=== PATIENT | female | born 1960 | race Caucasian/White ===

== ENCOUNTER 2016-09-02 17:43 | Emergency (ER) | payer OTHER ==
[2015-07-28 07:40] VITALS: BMI 43.3
[~2016-09-02 17:43] MED LIST: CARAFATE1 G PO; PLAVIX75 MG PO; PRAVACHOL20 MG PO; PRILOSEC20 MG PO; ZESTORETIC 20/21 TAB PO
== END 2016-09-02 19:00 | disposition left against medical advice (07) ==
LOC: D.ER 17:43
DX: T78.40XA Allergy, unspecified, initial encounter (principal); X58.XXXA Exposure to other specified factors, initial encounter

== ENCOUNTER → 2016-09-28 07:18 | Outpatient (CLI) | payer OTHER ==
[~2016-09-28] VITALS: Ht 167.6 cm; Wt 122.7 kg
--- NOTE | ~2016-09-28 | OP ---
PATIENT NAME: TOLU ROJAS MEDICAL RECORD: [id number] :62 LOCATION:D.CAT ADMISSION DATE: SURGEON: MYRON HEATON MD DATE OF OPERATION: 09/28/2016 PROCEDURES: 1. PTCA stent LAD. 2. Intravascular ultrasound of the LAD. 3. Left heart catheterization. 4. Selective coronary angiography. 5. Left ventriculogram. INDICATION: Angina and coronary artery disease. PROCEDURE IN DETAIL: After informed consent was obtained and after detailed explanation of risks, benefits as well as alternative therapies, the patient elected to proceed with angiogram and angioplasty. The right femoral area was prepped and draped in normal sterile fashion. The right femoral artery was cannulated via modified Seldinger technique with placement of 6-Italian sheath. All catheters exchanged through this sheath. FINDINGS: The left ventriculogram was performed in standard 30-degree MACHADO view, reveals good cardiac wall motion throughout all segments. Overall ejection fraction is 60%. SELECTIVE CORONARY ANGIOGRAPHY: 1. Left main showed no significant angiographic disease. 2. Left circumflex has moderate irregularities, but no flow-limiting stenosis. 3. The left anterior descending has previously placed stent. This is widely patent. However, proximal to this in the proximal vessel there is a 70% stenosis confirmed by intravascular ultrasound. 4. Right coronary is chronically totally occluded, unchanged from previous angiography, distal right coronary fills via left to right collaterals. PERCUTANEOUS TRANSLUMINAL CORONARY ANGIOPLASTY OF THE LEFT ANTERIOR DESCENDING: The lesion was a 15 mm lesion and a 3.5 vessel FABIO 3 flow before and after the intervention. The intervention was undertaken with a 3.5 x 18 mm BioFreedom stent taken to 15 atmospheres. Result was 0% residual stenosis. OVERALL IMPRESSION: Successful percutaneous transluminal coronary angioplasty stent of the LAD going from 70% initial stenosis confirmed by intravascular ultrasound to 0% residual stenosis. TRANSINT:[id number] Voice Confirmation ID: [id number] DOCUMENT ID: [id number] MYRON HEATON MD CC: [id number] DICTATION DATE: 09/28/16 1145 DESIGN ENGINEER: 09/28/162119 DEP CLI 09/28/16 [place] [address]
--- NOTE | ~2016-09-28 | HEMODYNAMI ---
PATIENT:TOLU ROJAS MEDICAL RECORD: [id number] : 62 LOCATION:DAlejandroCAT ADMISSION DATE: 09/28/16 Generatedon:09/28/201611:48 Patient name: TOLU ROJAS Patient #: [id number] SSN: : 1960 Date of study: 09/28/2016 Page: Of Hemodynamic Procedure Report Patient Data Patient Demographics Procedure consent was obtained First Name: TOLU Gender: Female Last Name: BOB : 1960 Middle Initial: NASREEN Age: 55 year(s) Patient #: [id number] Race: Unknown Additional ID: [id number] Contact details Address: [address] [place] [address] State: [place] City: [place] Zip code: [address] Past Medical History Allergies Allergen Reaction Date Comments Reported Other allergy 09/28/2016 Hydralazine, Sotolol, ASA, Codeine Admission Admission Data Admission Date: 09/28/2016 Admission Time: 7:18 Admit Source: Other Height (in.): 66 BSA: 2.27 (m2) Height (cm.): 167.64 BMI: 43.58 (kg/m2) Weight (lbs.): 270 Weight (kg.): 122.47 Lab Results Lab Result Date: 09/28/2016 Lab Result Time: 7:50 Biochemistry Name Units Result Min Max BUN mg/dl 11 --(-*--)-- 7 18 CK-MB ng/ml 1.2 --(-*--)-- 0 3.6 Creatinine mg/dl 0.9 --(-*--)-- 0.6 1.3 Creatinine l 153 --(--*-)-- 21 215 Kinase Troponin l ng/ml 0.017 --(-*--)-- 0 0.06 CBC Name Units Result Min Max Hematocrit % 34.7 *-(----)-- 42 54 Hemoglobin g/dl 10.9 *-(----)-- 13.5 17.5 Procedure Procedure Types Cath Procedure Diagnostic Procedure [facility] w/Coronaries FFR/IVUS Intra-Coronary IVUS Initial PCI Procedure Coronary Stent Initial Miscellaneous Procedures Moderate Sedation up to 30 minutes Procedure Description Procedure Date Procedure Date: 09/28/2016 Procedure Start Time: 11:10 Procedure End Time: 11:46 Procedure Staff Name Function Moses Leigh MD Performing Physician Fercho Bateman RT Scrub Celina Kaplan RN Nurse Too Leon RN Business Development Officer Poitr Deleon RT Monitor Procedure Data Cath Procedure Fluoroscopy Diagnostic fluoroscopy Total fluoroscopy Time: 4.9 time: 4.9 min min Diagnostic fluoroscopy Total fluoroscopy dose: dose: 1046 mGy 1046 mGy Contrast Material Contrast Material Type Amount (ml) Isovue 300 108 Entry Location Entry Primary Successful Side Size Upsize Upsize Entry Closure Succes sful Closure Location (Fr) 1 (Fr) 2 (Fr) Remarks Device Remarks Femoral Right 5 Fr 6 Fr Exoseal artery Short Estimated blood loss: 10 ml Diagnostic catheters Device Type Used For End Catheter Placement Cordis 5Fr Pigtail Procedure Catheter (MP) Cordis 5Fr JL 4.0 Procedure Catheter (MP) Cordis 5Fr 3DRC Catheter Procedure (MP) Procedure Complications No complications Procedure Medications Medication Administration Route Dosage Oxygen NC 2 l/min Lidocaine 2% added to field 20 Heparin Flush Bag added to field 2 bags (1000units/500ml NS) 0.9% NaCl I.V. 100 ml/hr Versed I.V. 2 mg Fentanyl I.V. 100 mcg Versed I.V. 1 mg Fentanyl I.V. 50 mcg Versed I.V. 1 mg Fentanyl I.V. 50 mcg Versed I.V. 1 mg Fentanyl I.V. 50 mcg Heparin Bolus I.V. 4000 units Integrilin (Bolus I.V. 11.3 ml 2mg/ml) Fentanyl I.V. 50 mcg Versed I.V. 1 mg Plavix P.O. 600 mg Hemodynamics Rest BSA: 2.27 (m2) HGB: 10.9 (g/dl) O2 Consumption: Estimated: 226.49 (ml/min) O2 Co nsumption indexed: Estimated:99.78 (ml/min/m) Heart Rate: 78 (bpm) Pressure Samples Time Site Value (mmHg) Purpose Heart Use Rate(bpm) 11:18 LV 53/19,51 Snapshot 77 Snapshots Pre Cath Intra NCS Post Cath Vital Signs Time Heart Resp SPO2 etCO2 [id number] NIBP Rhythm Pain Sedation Rate (ipm) (%) (mmHg) (mmHg) (mmHg) Status Level (bpm) 11:02:11 81 16 100 0 0 118/64(81) NSR 0 (11) 10(A) , No pain 11:06:33 88 25 97 0 0 122/64(83) NSR 0 (11) 10(A) , No pain 11:10:55 79 17 98 0 0 105/55(76) NSR 0 (11) 10(A) , No pain 11:15:13 77 18 97 0 0 95/59(73) NSR 0 (11) 10(A) , No pain 11:19:25 73 20 98 0 0 102/60(86) NSR 0 (11) 10(A) , No pain 11:23:41 83 16 96 0 0 114/61(77) NSR 0 (11) 10(A) , No pain 11:27:59 83 19 94 0 0 109/66(94) NSR 0 (11) 10(A) , No pain 11:32:13 81 17 95 0 0 104/67(83) NSR 0 (11) 10(A) , No pain 11:36:29 92 16 97 0 0 109/59(87) NSR 0 (11) 10(A) , No pain 11:40:45 85 22 99 0 0 99/58(75) NSR 0 (11) 10(A) , No pain 11:44:57 96 0 0 111/68(89) NSR 0 (11) 10(A) , No pain Medications Time Medication Route Dose Verified Delivered Reason Notes Effectiveness by by 11:00:30 Oxygen NC 2 Moses Patrick used for l/min Reese Kaplan RN procedure 11:00:36 Lidocaine 2% added 20ml Moses Lopes for local to vial Reese Leigh MD anesthetic field 11:00:42 Heparin Flush added 2 Moses Lopes used for Bag to bags Reese Leigh MD procedure (1000units/500ml field NS) 11:00:52 0.9% NaCl I.V. 100 Mosesmary Patrick Per physician ml/hr Reese Kaplan RN 11:09:11 Versed I.V. 2 mg Moses Buffie for sedation Reese Kaplan RN 11:09:17 Fentanyl I.V. 100 Moses Buffie for sedation mcg Reese Kaplan RN 11:12:29 Versed I.V. 1 mg Moses Buffie for sedation Reese Kaplan RN 11:12:33 Fentanyl I.V. 50 Moses Buffie for sedation mcg Reese Kaplan RN 11:17:36 Versed I.V. 1 mg Moses Buffie for sedation Reese Kaplan RN 11:17:40 Fentanyl I.V. 50 Moses Buffie for sedation mcg Reese Kaplan RN 11:24:38 Versed I.V. 1 mg Moses Buffie for sedation Reese Kaplan RN 11:24:42 Fentanyl I.V. 50 Moses Buffie for sedation mcg Reese Kaplan RN 11:30:51 Heparin Bolus I.V. 4000 Moses Mujicaie for verifi ed units Reese Kaplan RN anticoagulation with dr leigh 11:32:35 Integrilin I.V. 11.3 Moses Patrick for Wasted (Bolus 2mg/ml) ml Reese Kaplan RN antiplatelet 8.7 ml therapy of vial 11:35:09 Versed I.V. 1 mg Moses Mujicaie for sedation Reese Kaplan RN 11:35:56 Fentanyl I.V. 50 Moses Buffie for sedation mcg Reese Kaplan RN 11:39:07 Plavix P.O. 600 Moses Patrick for mg Reese Kaplan RN antiplatelet therapy Procedure Log Time Note 10:45:11 Informed consent obtained and on chart 10:45:15 Admit Source: Other 10:45:34 Diagnostic Cath status Elective 10:45:36 Too Leon RN sent for patient. Start room use. 10:45:37 Time tracking: Regular hours 10:45:40 Plan of Care:Hemodynamics will remain stable., Cardiac rhythm will remain stable., Comfort level will be maintained., Respiratory function will remain adequate., Patient/ family verbilizes understanding of procedure., Procedure tolerated without complication., Recovers from procedure without complications.. 10:45:56 H&P Date Dictated: 09/21/2016 Within 30 days and on chart., H&P Addendum completed by physician on day of procedure. (MUST COMPLETE FOR ALL OUTPATIENTS). 10:47:52 Patient received from Pre/Post Procedure Room to CCL 1 Alert and oriented. Tansferred to table in Supine position. 10:47:53 Warm blankets applied, and latanya hugger turned on for patient comfort. 10:47:54 Correct patient and procedure confirmed by team. 10:47:54 ECG and BP/O2 sat monitors applied to patient. 11:00:30 Oxygen 2 l/min NC was administered by Celina Kaplan RN; used for procedure; 11:00:36 Lidocaine 2% 20ml vial added to field was administered by Moses Leigh MD; for local anesthetic; 11:00:42 Heparin Flush Bag (1000units/500ml NS) 2 bags added to field was administered by Moses Leigh MD; used for procedure; 11:00:52 0.9% NaCl 100 ml/hr I.V. was administered by Celina Kaplan RN; Per physician; 11:00:56 Vital chart was started 11:01:48 Baseline sample Acquired. 11::52 Rhythm: sinus rhythm 11::54 Full Disclosure recording started 11:01:57 Pre-procedure instructions explained to patient. 11:01:57 Pre-op teaching completed and patient verbalized understanding. 11:01:59 Family in waiting room. 11:02:00 Patient NPO since Midnight. 11:02:27 Patient allergic to Other allergyHydralazine, Sotolol, ASA, Codeine 11:02:29 Is the patient allergic to Iodine/contrast media? No. 11:02:30 Is patient on blood thinner?Yes 11:02:37 Patient diabetic? No. 11:02:48 Previous problem with sedation/anesthesia? No ? 11:02:49 Snore? Yes 11:02:50 Sleep apnea? No 11:02:51 Deviated septum? No 11:02:53 Opens mouth fully? Yes 11:02:54 Sticks out tongue? Yes 11:02:58 Airway obstruction? No ? 11:03:00 Dentures? No ? 11:03:02 Modified Isidoro's test Ulnar < 7 seconds 11:03:04 Patient pain scale 0/10 ?. 11:03:15 IV patent on arrival in left hand with 0.9% NaCl at [facility]. 11:03:44 Lab Result : BUN 11 mg/dl 11:03:44 Lab Result : Hemoglobin 10.9 g/dl 11::44 Lab Result : Creatinine 0.9 mg/dl 11::44 Lab Result : Hematocrit 34.7 % 11:03:47 Lab results completed and on chart. 11:03:49 Right Radial & Right Groin area was prepped with chlora-prep and draped in sterile fashion 11:03:50 Alarms reviewed by R. N. 11:03:50 Sharps counted by scrub and verified by R.N. 11:03:54 Use device set Radial Dx 11:03:55 MBrace Wrist Support opened to sterile field. 11:03:56 Tegaderm 4 x 4 opened to sterile field. 11:03:57 Acist Syringe opened to sterile field. 11:03:58 Acist Manifold opened to sterile field. 11:03:58 Acist Hand Control opened to sterile field. 11:03:59 Medline Cath Pack opened to sterile field. 11:03:59 Bag Decanter opened to sterile field. 11:04:00 Terumo 6Fr Slender Glidesheath opened to sterile field. 11:04:00 St Angel 260cm J .035 wire opened to sterile field. 11:05:08 Patient Height : 66 cm 11:05:10 Patient Weight : 270 kg 11:05:39 Lab Result : Troponin l 0.017 ng/ml 11:05:39 Lab Result : Creatinine Kinase 153 l 11:05:39 Lab Result : CK-MB 1.2 ng/ml 11:05:42 Physician paged 11:08:18 Physician arrived 11:08:18 --------ALL STOP TIME OUT------ 11:08:18 Final Timeout: patient, procedure, and site verified with staff and physician. All members of the team are in agreement. 11:08:20 Right Radial & Right Groin site verified by team. 11:08:23 Physical assessment completed. ASA score P 2 - A patient with mild systemic disease as per Moses Leigh MD. 11:08:26 Sedation plan: IV Moderate Sedation Versed, Fentanyl 11:09:11 Versed 2 mg I.V. was administered by Celina Kaplan RN; for sedation; 11:09:12 Zero performed for pressure channel P1 11::17 Fentanyl 100 mcg I.V. was administered by Buffie Kaplan RN; for sedation; 11:10:39 Procedure started. 11:10:51 Local anesthetic to right radial artery with Lidocaine 2% by Moses Leigh MD.INITIAL ACCESS ONLY 11:12:08 Terumo 5Fr Grannis Sheath opened to sterile field. 11:12:14 Local anesthetic to right femoral artery with Lidocaine 2% by Moses Leigh MD.ADDITIONAL ACCESS 11:12:29 Versed 1 mg I.V. was administered by Celina Kaplan RN; for sedation; 11:12:33 Fentanyl 50 mcg I.V. was administered by Cleina Kaplan RN; for sedation; 11:15:21 Use device set Multipack Set 11:15:23 Diagnostic Infinity 5Fr Multipack catheter opened to sterile field. 11:16:01 A 5 Fr sheath was inserted into the Right Femoral artery 11:16:06 A Cordis 5Fr Pigtail Catheter (MP) was advanced over the wire and used for Procedure. 11:17:36 Versed 1 mg I.V. was administered by Celina Kaplan RN; for sedation; 11:17:40 Fentanyl 50 mcg I.V. was administered by Celina Kaplan RN; for sedation; 11:18:20 LV gram done using MACHADO 11:18:22 Injector settings: Ml/sec: 10., Volume: 20, 11:18:27 EF : 55 % 11:18:34 Catheter exchanged over wire. 11:18:38 A Cordis 5Fr JL 4.0 Catheter (MP) was advanced over the wire and used for Procedure. 11:19:21 LCA angiography performed. 11:20:16 Catheter exchanged over wire. 11:20:22 A Cordis 5Fr 3DRC Catheter (MP) was advanced over the wire and used for Procedure. 11:20:37 RCA angiography performed. 11:20:58 Catheter removed. 11:22:28 Cordis 6FR XBLAD 3.5 guide catheter opened to sterile field. 11:22:29 Mcdaniels Whisper J 300cm 0.014 guide wire opened to sterile field. 11:22:30 [place] IVUS Catheter opened to sterile field. 11:22:30 Terumo 6Fr Grannis Sheath opened to sterile field. 11:22:39 Sheath upsized to a 6 Fr Short. 11:22:49 6 Fr xblad 3.5 guide catheter was inserted over the wire 11::31 Guide Catheter removed. unable to cannulate vessel. 11:24:36 Cordis 6FR XBLAD 4.0 guide catheter opened to sterile field. 11::38 Versed 1 mg I.V. was administered by Celina Kaplan RN; for sedation; 11::42 Fentanyl 50 mcg I.V. was administered by Celina Kaplan RN; for sedation; 11:25:24 whisper wire advanced. 11::43 Wire advanced across lesion. 11::53 IVUS catheter advanced over wire. 11:30:51 Heparin Bolus 4000 units I.V. was administered by Celina Kaplan RN; for anticoagulation; verified with dr leigh 11:31:40 IVUS pass to LAD lesion performed. 11::41 IVUS catheter removed over wire. 11::47 Wire removed. 11::51 whisper wire advanced. 11::53 Wire advanced across lesion. 11:32:35 Integrilin (Bolus 2mg/ml) 11.3 ml I.V. was administered by Celina Kaplan RN; for antiplatelet therapy; Wasted 8.7 ml of vial 11:33:25 Inflation Number: 1 A Biofreedom 3.5 x 18 stent (No Cost Implant) was prepped and advanced across the Prox LAD. The stent was deployed at 13 KAYCEE for 0:10 (min:sec). 11:34:00 Stent catheter was removed intact over wire. 11:34:01 Wire removed. 11:34:02 Guide catheter removed. 11:34:07 Cordis 6Fr Exoseal opened to sterile field. 11:35:09 Versed 1 mg I.V. was administered by Celina Kaplan RN; for sedation; 11:35:56 Fentanyl 50 mcg I.V. was administered by Celina Kaplan RN; for sedation; 11:36:02 Sheath removed intact; hemostasis achieved with Exoseal to the Right Femoral artery. 11:36:04 Procedure ended.(Physican Out) :38:08 Fluoroscopy time 04.90 minutes. 11:38:11 Flurop Dose total: 1046 11:38:11 Fluoroscopy dose: 1046 mGy 11:38:18 Contrast amount:Isovue 300 108ml. 11:38:19 Sharps counted by scrub and verified by R.N. 11:38:22 Insertion/operative site no bleeding no hematoma. 11:38:25 Post-op/insertion site Right Femoral artery dressed using a 4 x 4 and Tegaderm. 11:38:28 Post-op/insertion site Right Radial artery dressed using a Bandaid. 11:38:33 Post right femoral artery:stable, soft, clean and dry 11:38:43 Post right radial artery:stable, soft, clean and dry 11:38:46 Post Procedure Pulses reassessed and unchanged 11:38:48 Post-procedure physical assessment completed. ASA score P 2 - A patient with mild systemic disease as per Moses Leigh MD. 11:38:51 Post procedure rhythm: unchanged. 11:38:55 Estimated blood loss: 10 ml 11:38:56 Post procedure instruction explained to patient.Patient verbalizes understanding. 11:38:57 Patient needs reinforcement of post procedure teaching. 11:39:07 Plavix 600 mg P.O. was administered by Celina Kaplan RN; for antiplatelet therapy; 11:40:50 Procedure type changed to Cath procedure, Diagnostic procedure, LHC, LHC w/Coronaries, FFR/IVUS, Intra-Coronary IVUS Initial, PCI procedure, Coronary Stent Initial, Miscellaneous Procedures, Moderate Sedation up to 30 minutes 11:46:27 Merit BasixCompak Inflation Kit opened to sterile field. 11:46:33 Procedure and supply charges have been captured, reviewed, submitted and are correct. 11:46:34 Procedure Complication : No complications 11:46:48 Vital chart was stopped 11:46:48 See physician's report for complete and final results. 11:46:51 Report given to Pre/Post Procedure Room. 11:46:53 Patient transfered to Pre/Post Procedure Room with Stretcher. 11:46:56 Procedure ended. 11:46:56 Full Disclosure recording stopped 11:47:00 End room use (Document Last) Intervention Summary Intervention Notes Time ActionType Lesion and Equipment Action# Pressure Duration Attributes Used 11:33:25 Place stent Prox LAD Biofreedom 1 13 00:10 3.5 x 18 stent (No Cost Implant) Device Usage Item Name Manufacture Quantity Catalog Hospital Part Current Minimal Lot# / Number Charge Number Stock Stock Serial# Code [facility] 1 140-0250-00 617446 55695 355969 5 Wrist Vascular Support Dynamics Tegaderm 4 3M 1 1626W 519377 246717 994957 5 x 4 Acist Acist 1 30479 780633 956658 575401 20 Syringe Medical Systems Inc Acist Acist 1 61053 641345 237150 513784 5 Manifold Medical Systems Inc Acist Hand Acist 1 79410 631487 332940 923383 5 Control Medical Systems Inc Medline Cardinal 1 [id number] 185293 25418 195175 5 Cath Pack Health Bag Microtek 1 2002S 735793 70369 877449 5 Decanter Medical Inc. Terumo 6Fr Terumo 1 [id number] 091629 600912 502951 [address] [facility] St Angel 1 574152 118389 272538 023743 30 260cm J .035 wire Terumo 5Fr Terumo 1 [id number] 904143 111243 493488 40 Grannis Sheath Diagnostic Cardinal 1 [id number] 909206 89611 164447 30 Infinity Health 5Fr Multipack catheter Cordis 5Fr Cardinal 1 533496 5 Pigtail Health Catheter (MP) Cordis 5Fr Cardinal 1 732741 5 JL 4.0 Health Catheter (MP) Cordis 5Fr Cardinal 1 312773 5 3DRC Health Catheter (MP) Cordis 6FR Cardinal 1 [id number] 227543 297694 036064 10 XBLAD 3.5 Health guide catheter Mcdaniels Mcdaniels 1 [id number] 395692 613376 979785 5 Whisper J Vascular 300cm 0.014 guide wire [place] 1 [id number] 219575 450427 200922 8 [place] IVUS Catheter Terumo 6Fr Terumo 1 [id number] 159914 035354 755733 40 Grannis Sheath Cordis 6FR Cardinal 1 [id number] 291585 453461 921873 3 XBLAD 4.0 Health guide catheter Biofreedom Biosensors 1 [facility]2-6184 020263 714551 5 [id number] 3.5 x 18 [place] SA stent (No Cost Implant) Cordis 6Fr Cardinal 1 EX600 535153 439000 636582 10 [facility] Bluwan Merit Merit 1 [id number] 682905 849086 402441 15 LilaKutu Medical Inflation Kit Signature Audit [place] Stage Time Signature Unsigned Intra-Procedure 09/28/2016 Piotr Deleon 11:48:48 AM RT(R) Signatures Monitor : Piotr Deleon RT Signature : Date : Time : [address] [place] [address]
[~2016-09-28 07:18] MED LIST changes: +CELEXA10 MG PO; +FUROSEMIDE20 MG PO; +LINZESS290 MCG PO; +NEURONTIN 300300 MG PO; +OMEPRAZOLE40 MG PO; -PRILOSEC20 MG PO; +ROBAXIN500 MG PO; +RYTHMOL SR225 MG PO; +XARELTO15 MG PO
[2016-09-28 07:51] VITALS: BP 113/54; Ht 167.6 cm; Wt 122.7 kg
[2016-09-28 08:07] LABS: BASOPHILS 0.2 % (0-2); EOSINOPHILS 0.4 % (0-7); HEMATOCRIT 34.7 % (36.0-48.0); HEMOGLOBIN 10.9 g/dL (12-16); IMMATURE GRANULOCYTES 0.2 % (0-5); LYMPHOCYTES 32.4 % (15-50); MCH 23.8 pg (26.0-34.0); MCHC 31.4 g/dL (31.0-37.0); MCV 75.8 fL (80.0-100.0); MEAN PLATELET VOLUME 10.1 fL (7.4-10.4); MONOCYTES 6.3 % (2-11); NEUTROPHILS 60.5 % (40-80); PLATELET COUNT 286 10x3/uL (130-400); RBC 4.58 10x6/uL (4.00-5.40); RDW 16.2 % (11.5-14.5); WBC 5.1 10x3/uL (4.8-10.8)
[2016-09-28 08:28] LABS: CALC OSMOLALITY 277 mosm/kg (275-300); CALCIUM 8.6 mg/dL (8.5-10.1); CHLORIDE - SERUM 102 mmol/L (98-107); CKMB 1.2 U/L (0.0-3.6); CREATINE KINASE 153 UL (21-215); CREATININE - SERUM 0.9 mg/dL (0.6-1.3); GLUCOSE 125 mg/dL (74-106); SODIUM 139 mmol/L (136-145); UREA NITROGEN 11 mg/dL (7-18); eGFR NON AFRICAN AMERICAN 69 mL/min (90-120)
[2016-09-28 08:29] LABS: TROPONIN-I < 0.017 ng/mL (0.000-0.060)
[2016-09-28 08:30] LABS: POTASSIUM - SERUM 2.7 mmol/L (3.5-5.1)
--- NOTE | 2016-09-28 12:15 | NUR ---
RESTING, RIGHT GROIN CDI, NO HEMATOMA OR BLEEDING AT SITE
--- NOTE | 2016-09-28 12:25 | NUR ---
C/O NAUSEA- ZOFRAN 4MG GIVEN IV. COOL CLOTH TO HEAD, AT SIDE.
--- NOTE | 2016-09-28 12:45 | NUR ---
NAUSEA BETTER AT THIS TIME, RIGHT GROIN CDI, NO HEMATOMA OR BLEEDING AT SITE
--- NOTE | 2016-09-28 15:30 | NUR ---
EKG COMPLETE- NSR, LAB HERE FOR DRAW, SANDWICH SERVED, AT SIDE
--- NOTE | 2016-09-28 16:00 | NUR ---
UP TO REST ROOM- VOID, IV D'C WITH CATH TIP INTACT, WRITTEN AND VERBAL INSTRUCTIONS GIVEN TO PT AND . VERBAL UNDERSTANDING NOTED.
--- NOTE | 2016-09-28 16:30 | NUR ---
LAB RESULTS COMPLETE, D'C HOME WITH . DENIES CHEST PAIN
== END | disposition home or self-care (01) ==
LOC: D.CATH 07:18
PROVIDERS: Internal Medicine Interventional Cardiology
DX: I25.119 Atherosclerotic heart disease of native coronary artery with unspecified angina pectoris (principal); Z00.6 Encounter for examination for normal comparison and control in clinical research program; Z01.812 Encounter for preprocedural laboratory examination

== ENCOUNTER 2016-12-11 09:43 | Inpatient (IN) | payer OTHER ==
--- NOTE | 2016-12-11 10:10 | NUR ---
RECIEVED TO ROOM 2225 FROM [facility]. IV SITED TO L WRIST WITH 22 GUAGE X 1 ATTEMPT. RIGHT INDEX FINGER RED AND SWOLLEN WITH DARKNESS NOTED TO TIP OF FINGER. COMPLAINING OF THROBBING PAIN. FAMILY AT BEDSIDE.
[2016-12-11 10:14] VITALS: BP 128/64; BMI 42.0
[2016-12-11 10:36] LABS: BASOPHILS 0.1 % (0-2); EOSINOPHILS 0.4 % (0-7); HEMATOCRIT 34.1 % (36.0-48.0); HEMOGLOBIN 10.8 g/dL (12-16); IMMATURE GRANULOCYTES 0.3 % (0-5); LYMPHOCYTES 27.1 % (15-50); MCH 23.9 pg (26.0-34.0); MCHC 31.7 g/dL (31.0-37.0); MCV 75.4 fL (80.0-100.0); MEAN PLATELET VOLUME 9.8 fL (7.4-10.4); MONOCYTES 5.3 % (2-11); NEUTROPHILS 66.8 % (40-80); PLATELET COUNT 307 10x3/uL (130-400); RBC 4.52 10x6/uL (4.00-5.40); RDW 16.4 % (11.5-14.5); WBC 7.4 10x3/uL (4.8-10.8)
[2016-12-11 10:37] VITALS: BP 128/64
--- NOTE | 2016-12-11 10:44 | NUR ---
DEMEROL AND PHENERGAN GIVEN IM TO L HIP.
[2016-12-11 11:01] LABS: ALBUMIN 3.5 g/dL (3.4-5.0); ANION GAP 16.3 mmol/L (8-16); BILIRUBIN - TOTAL 0.41 mg/dL (0.2-1.3); CALCIUM 9.1 mg/dL (8.5-10.1); CARBON DIOXIDE 24.9 mmol/L (21.0-32.0); CREATININE - SERUM 1.1 mg/dL (0.6-1.3); POTASSIUM - SERUM 3.2 mmol/L (3.5-5.1); PROTEIN - SERUM 7.2 g/dL (6.4-8.2)
--- NOTE | 2016-12-11 13:15 | NUR ---
OFF FLOOR TO OR VIA BED.
--- NOTE | 2016-12-11 13:57 | NUR ---
RETURNED TO ROOM FROM OR VIA BED. DRESSING TO R HAND C/D/I. FAMILY AT BEDSIDE. DENIES ANY NEEDS AT THIS TIME.
[2016-12-11 16:18] VITALS: BP 92/47
[2016-12-11 20:40] VITALS: BP 109/61
--- NOTE | 2016-12-12 01:15 | NUR ---
RN NOTE: PT RESTING QUIETLY IN SUPINE POSITION WITH RIGHT HAND ELEVATED. DRESSING ON RIGHT HAND CLEAN AND DRY. IV IN LEFT WRIST PATENT WITH NS INFUSING AT 50 ML / HR. WILL CONTINUE TO MONITOR FOR NEEDS. CALL LIGHT WITHIN REACH.
[2016-12-12 01:22] VITALS: BP 96/51
[2016-12-12 04:08] VITALS: BP 89/48
[2016-12-12 04:56] LABS: HEMATOCRIT 31.2 % (36.0-48.0); HEMOGLOBIN 9.8 g/dL (12-16)
[2016-12-12 05:21] LABS: ANION GAP 12.3 mmol/L (8-16); CALCIUM 8.5 mg/dL (8.5-10.1); CARBON DIOXIDE 25.7 mmol/L (21.0-32.0); CREATININE - SERUM 1.1 mg/dL (0.6-1.3)
--- NOTE | 2016-12-12 07:30 | NUR ---
ASSESSMENT COMPLETE. IV TO L WRIST PATENT. NS INFUSING AT 50 CC/HR VIA PUMP. DRESSING TO R HAND C/D/I. FAMILY AT BEDSIDE. DENIES ANY NEEDS AT THIS TIME.
--- NOTE | 2016-12-12 08:23 | OP ---
PATIENT NAME: TOLU ROJAS MEDICAL RECORD: [id number] :62 LOCATION:D.[id number] ADMISSION DATE:12/11/16 SURGEON: YOLANDA FRANCO DO DATE OF OPERATION: 12/11/2016 PROCEDURE PERFORMED: Right index finger incision and debridement. PREOPERATIVE DIAGNOSIS: Right index finger felon. POSTOPERATIVE DIAGNOSIS: Right index finger felon. INDICATIONS: Ms. Munoz is a 56-year-old right hand dominant female that started to get a finger infection in her right index finger approximately a week ago. She was seen by primary care and started on Bactrim. The finger continued to get more red and painful and swollen. She was then seen yesterday and given what was found to be a gram of Ancef in the office through IM. Was checked on again today and did not get better, and she was directly admitted before I was asked to see her as a consult. I saw her and some of the finger needed to be I&D'd. Informed her of the risks and benefits and asked when she ate last, she informed me that she had just had a biscuit and therefore I told her that we would forego any anesthesia, and that I would do a digital block on her. She was okay with that and proceeded forward with the procedure. SURGEON: Yolanda Franco DO DESCRIPTION OF PROCEDURE: The patient was given a block in the preoperative area with a mixture of 0.25% Marcaine, with a mixture of 1% lidocaine with epinephrine in it. There were 6 mL total put in the right index finger at the base of the digit. After it was cleaned with Betadine and alcohol, 4 mL of the Marcaine and 2 mL of lidocaine with epinephrine. Once this was done, the block was set up. The patient was taken back to the operating room. She was in the supine position on the bed. She was prepped and draped with Betadine and then sterile towels were placed around the finger isolating it. A time-out was performed. Everyone was in agreement that this was the correct side, site and patient. She was already on antibiotics, those were continued. Once this was all confirmed with the timeout, the hand was supinated and a midline incision on the volar aspect of the index finger was made. Soon as an incision was made, hemostat was made to spread the incision and purulence came out of the wound. This was cultured for aerobic and anaerobic cultures and Gram stain and was sent to the lab. After the cultures were taken, continue to do debridement of all the necrotic tissue and most of the purulence was expressed from the digit as well as all the loculations were broken up. The skin that had around that site, the distal tip of the index finger was removed as well, and then the wound was irrigated thoroughly. Once this is done, Adaptic, 4 x 4s, Kerlix and Coban was used to wrap the finger down around the wrist as well securing into place. The plan will be to keep her overnight on IV antibiotics and recheck the finger in the morning to ensure it is improving. Blood loss on this case was minimal. TRANSINT:[id number] Voice Confirmation ID: [id number] DOCUMENT ID: [id number] OPERATIVE REPORT [id number] TOLU ROJAS MICHAEL D, DO at 0823 CC: [id number] DICTATION DATE: 12/11/16 1414 MANAGER OF CORPORATE: 12/11/16 1456 ADM IN [facility] [address] [place] [address]
[2016-12-12 08:25] VITALS: BP 115/59
--- NOTE | 2016-12-12 10:00 | NUR ---
PLACED IN TEMPORARY ISOLATION FOR STAPH.
[2016-12-12 12:25] VITALS: BP 102/49
--- NOTE | 2016-12-12 14:25 | NUR ---
ULTRAM GIVEN FOR COMPLAINT OF RIGHT HAND PAIN.
[2016-12-12 16:36] VITALS: BP 105/65
--- NOTE | 2016-12-12 17:39 | NUR ---
SITTING UP IN CHAIR. DENIES ANY NEEDS AT PRESENT.
[2016-12-12 19:30] VITALS: BP 91/42
[2016-12-13 04:00] VITALS: BP 86/36
--- NOTE | 2016-12-13 05:22 | NUR ---
RN NOTE: PT RESTIN QUIETLY IN SUPINE POSITION WITH UNLABORED BREATHING. IV IN LEFT WRIST SALINE LOCKED. DREAAING ON RIGHT HAND CLEAN AND DRY. SIDE RAILS UP X2 FOR SAFETY.
[2016-12-13 06:01] LABS: HEMATOCRIT 33.2 % (36.0-48.0); HEMOGLOBIN 10.3 g/dL (12-16)
--- NOTE | 2016-12-13 07:46 | NUR ---
PT REQUESTING PAIN MEDICATION AT THIS TIME. PRN OXY ADMINISTERED PER ORDER FOR PAIN. REMAINS IN CONTACT ISOLATION. DR FRANCO IN ROOM PERFORMING DRESSING CHANGE AT THIS TIME. CALL LIGHT IN REACH, WILL CONTINUE WITH PLAN OF CARE.
[2016-12-13 08:31] VITALS: BP 104/61
--- NOTE | 2016-12-13 09:14 | NUR ---
SCHEDULED MEDICATIONS ADMINISTERED AT THIS TIME WITHOUT DIFFICULTY. PAIN 2/10 ON RE-ASSESSMENT. REMAINS IN CONTACT ISOLATION. AT BEDSIDE AND IV PATENT WITH NO S/S OF INFILTRATION PRESENT. CALL LIGHT IN REACH, WILL CONTINUE WITH PLAN OF CARE.
[2016-12-13 09:20] LABS: BASOPHILS 0.2 % (0-2); EOSINOPHILS 1.1 % (0-7); IMMATURE GRANULOCYTES 0.2 % (0-5); LYMPHOCYTES 39.3 % (15-50); MCH 23.4 pg (26.0-34.0); MEAN PLATELET VOLUME 10.7 fL (7.4-10.4); MONOCYTES 10.4 % (2-11); NEUTROPHILS 48.8 % (40-80); PLATELET COUNT 283 10x3/uL (130-400); RBC 4.23 10x6/uL (4.00-5.40); RDW 17.1 % (11.5-14.5)
[2016-12-13 09:26] LABS: WBC 5.4 10x3/uL (4.8-10.8)
[2016-12-13 09:32] LABS: ALBUMIN 2.9 g/dL (3.4-5.0); ANION GAP 13.7 mmol/L (8-16); BILIRUBIN - TOTAL 0.26 mg/dL (0.2-1.3); CALCIUM 8.5 mg/dL (8.5-10.1); CARBON DIOXIDE 24.6 mmol/L (21.0-32.0); POTASSIUM - SERUM 4.3 mmol/L (3.5-5.1); PROTEIN - SERUM 6.1 g/dL (6.4-8.2)
--- NOTE | 2016-12-13 11:28 | NUR ---
Patient Name: TOLU ROJAS Admission Status: Elective Accout number: [id number] Admission Date: 12-11-2016 : 1960 Admission Diagnosis: Attending: PRINCE DOUGLAS Current LOS: 2 Anticipated DC Date: 12-15-2016 Planned Disposition: Home Primary Insurance: [facility] PPO Discharge Planning Comments: CM MET WITH PATIENT REGARDING D/C NEEDS AND PLANS. PATIENT STATED SHE LIVES WITH HER SPOUSE (ALEXEI) AND HE WILL DRIVE HER HOME AT DISCHARGE. PATIENT STATES SHE HAS NO STEPS TO ENTER HOME AND HAS 1 FLIGHT INSIDE WITH RAILS. PATIENT IS INDEPENDENT WITH HER CARE AND HAS NO DME AT HOME. PATIENTS PCP IS DR. RIOS AND PHARMACY IS [facility] AT [facility]. CM WILL CONTINUE TO FOLLOW PATIENT WITH D/C NEEDS AND PLANS. PCP DR. BLANCA HUERTAS AT [facility]- [phone] ALEXEI (SPOUSE) [phone] Metal Treater: Toshia Guan Is the patient Alert and Oriented? Yes 0 * How many steps to enter\exit or inside your home? 1 flight 0 * PCP DR. RIOS 0 * Pharmacy [facility] AT [facility] 0 * Preadmission Environment Home with Family 0 * ADLs Independent 0 * Equipment None 0 * List name and contact numbers for known caregivers / representatives who currently or will assist patient after discharge: ALEXEI (SPOUSE) [phone] * Community resources currently utilized None 0 * Additional services required to return to the preadmission environment? Yes 0 * Can the patient safely return to the preadmission environment? Yes 0 * Has this patient been hospitalized within the prior 30 days at any hospital? No 0 Grand Total: 0
[2016-12-13] MEDS ORDERED: VIBRAMYCIN 100100 MG PO (11:54)
[2016-12-13 12:04] VITALS: BP 102/56
--- NOTE | 2016-12-13 12:50 | NUR ---
DISCHARGE PAPERWORK REVIEWED AT THIS TIME WITH PT AND SPOUSE. DENIES QUESTIONS OR CONCERNS. IV TO LEFT WRIST D/C WITH CATH TIP INTACT. CALL LIGHT IN REACH, WILL D/C HOME AFTER FINISHING LUNCH.
--- NOTE | 2016-12-13 13:13 | NUR ---
CM REASSESSMENT NOTE: PATIENT IS DISCHARGING HOME TODAY. SPOUSE IS DRIVING HER AND PATIENT REFUSED HOME HEALTH AND HAD NO OTHER NEEDS FOR DISCHARGE.
--- NOTE | 2017-01-03 11:14 | DS ---
PATIENT:TOLU ROJAS :62 MEDICAL RECORD: [id number] DISCHARGE SUMMARY ADMISSION DATE: 12/11/16 DISCHARGE DATE: 12/13/16 This is a discharge dated 12/13/2016 from the inpatient hospital. DISCHARGE DIAGNOSES: 1. Right index finger cellulitis/abscess with cultures positive for MRSA. 2. Hypertension. 3. Coronary artery disease. 4. Atrial fibrillation. 5. Gastroesophageal reflux disease. 6. Hyperlipidemia. CONSULTS ON THIS HOSPITALIZATION: Colton Jimenes DO, with orthopedics. PROCEDURES ON THIS HOSPITALIZATION: Right index finger I&D on 12/[address] Jimenes. HOSPITAL COURSE: Full H&P is located elsewhere on the chart on this 56-year-old female admitted with failed outpatient treatment of cellulitis of the right index finger. She was started on Bactrim for antibiotic coverage. She was seen by orthopedics, Dr. Jimenes, and underwent I&D of that right index finger on 12/11. Cultures were positive for MRSA. Antibiotics were changed to vancomycin for coverage of that. Electrolytes were managed by protocol. She had narcotics for pain control. She was considered stable for discharge with a change to oral antibiotic, doxycycline, on 12/13/2016. DISCHARGE MEDICATIONS: As per discharge medication reconciliation. DISCHARGE DISPOSITION: The patient is discharged home. She will continue her current diet and level of activities. She will follow up with orthopedics as directed and will be seen by [facility] house calls. She will follow with primary care as directed. At least 30 minutes was spent in this discharge activity. TRANSINT:[id number] Voice Confirmation ID: [id number] DOCUMENT ID: [id number] Dictated By: MAAME LAYTON I have interviewed/examined the above patient and agree with these documented findings. COLTON WHALEN MD at 1120 at 1114 CC: [id number] DICTATION DATE: 01/02/171731 BOTTLE CARRIER: 01/02/171742 DIS IN 12/13/16 [address] [place] [address]
== END 2016-12-13 13:11 | disposition home or self-care (01) | DRG 603 ==
LOC: D.MS 09:43
PROVIDERS: Family Medicine; Orthopaedic Surgery; ADMIT Family Medicine
PROC: 0HBFXZZ Excision of Right Hand Skin, External Approach (ICD-10-PCS; principal; 2016-12-11 13:28)
DX: L03.011 Cellulitis of right finger (principal); I48.91 Unspecified atrial fibrillation; K21.9 Gastro-esophageal reflux disease without esophagitis

== ENCOUNTER 2017-03-31 03:14 | Observation (INO) | payer OTHER ==
[~2017-03-31] VITALS: Ht 165.1 cm; Wt 118.8 kg
--- NOTE | ~2017-03-31 | HEMODYNAMI ---
PATIENT:TOLU ROJAS MEDICAL RECORD: [id number] : 62 [id number] ADMISSION DATE: 03/31/17 Generatedon:03/31/201711:24 Patient name: TOLU ROJAS Patient #: [id number] SSN: : 1960 Date of study: 03/31/2017 Page: Of Hemodynamic Procedure Report Patient Data Patient Demographics Procedure consent was obtained First Name: TOLU Gender: Female Last Name: BOB : 1960 Middle Initial: NASREEN Age: 56 year(s) Patient #: [id number] Race: Unknown Additional ID: [id number] Contact details Address: [address] [place] [address] State: [place] City: [place] Zip code: [address] Past Medical History Allergies Allergen Reaction Date Comments Reported Other allergy 09/28/2016 Hydralazine, Sotolol, ASA, Codeine Other allergy 03/31/2017 Aspirin, codeine Admission Admission Data Admission Date: 03/31/2017 Admission Time: 7:20 Room #: [facility] Lab Results Lab Result Date: 03/31/2017 Lab Result Time: 3:53 Biochemistry Name Units Result Min Max BUN mg/dl 19 --(----)*- 7 18 Creatinine mg/dl 1 --(--*-)-- 0.6 1.3 CBC Name Units Result Min Max Hematocrit % 36.6 *-(----)-- 42 54 Hemoglobin g/dl 11.5 *-(----)-- 13.5 17.5 Procedure Procedure Types Cath Procedure Diagnostic Procedure [facility] w/Coronaries Miscellaneous Procedures Moderate Sedation up to 15 minutes Procedure Description Procedure Date Procedure Date: 03/31/2017 Procedure Start Time: 11:07 Procedure End Time: 11:24 Procedure Staff Name Function Alejandro Cintron MD Performing Physician Meka Au RT Monitor Verito Murphy RT Scrub Barbara Lange RN Nurse Too Leon RN Nurse Procedure Data Cath Procedure Fluoroscopy Diagnostic fluoroscopy Total fluoroscopy Time: 1.5 time: 1.5 min min Diagnostic fluoroscopy Total fluoroscopy dose: 508 dose: 508 mGy mGy Contrast Material Contrast Material Type Amount (ml) Isovue 300 52 Entry Location Entry Primary Successful Side Size Upsize Upsize Entry Closure Succes sful Closure Location (Fr) 1 (Fr) 2 (Fr) Remarks Device Remarks Femoral Right 5 Fr Exoseal artery Estimated blood loss: 5 ml Diagnostic catheters Device Type Used For End Catheter Placement MULTIPACK JL 4.0 5Fr Left Coronary catheter Angiography MULTIPACK 3DRC 5Fr Right Coronary catheter Angiography MULTIPACK Pigtail 5 Fr LV Angiography catheter Procedure Complications No complications Procedure Medications Medication Administration Route Dosage 0.9% NaCl I.V. 100 ml/hr Oxygen NC 2 l/min Lidocaine 2% added to field 20 Heparin Flush Bag added to field 2 bags (1000units/500ml NS) Fentanyl I.V. 50 mcg Versed I.V. 1 mg Versed I.V. 1 mg Fentanyl I.V. 50 mcg Fentanyl I.V. 50 mcg Versed I.V. 1 mg Versed I.V. 1 mg Fentanyl I.V. 50 mcg Fentanyl I.V. 50 mcg Hemodynamics Rest HGB: 11.5 (g/dl) Heart Rate: 76 (bpm) Pressure Samples Time Site Value (mmHg) Purpose Heart Use Rate(bpm) 11:18 LV 122/8,25 EDP 83 11:18 AO 131/75(98) Pullback 91 11:18 LV 147/-6,14 Pullback 91 Gradients Valve Time Site 1 Site 2 Mean SEP/DFP Peak To Heart Use (mmHg) (sec/min) Peak Rate (mmHg) (bpm) Aortic 11:18 LV AO 18 22 16 91 147/-6,14 131/75(98) Calculations Valve P-P Mean Valve Index Valve Source Name Gradient Area Flow (cm2) Aortic 16 18 16 18 Snapshots Pre Cath Intra NCS Post Cath Vital Signs Time Heart Resp SPO2 etCO2 NIBP (mmHg) Rhythm Pain Sedation Rate (ipm) (%) (mmHg) Status Level (bpm) 11:02:27 72 16 98 44.8 124/73(104) NSR 0 (11) 10(A) , No pain 11:06:39 83 18 97 31.1 106/74(88) NSR 0 (11) 10(A) , No pain 11:10:48 78 16 98 24.3 109/57(72) NSR 0 (11) 9(A) , No pain 11:14:56 76 16 98 47.8 113/70(86) NSR 0 (11) 9(A) , No pain 11:19:04 86 16 99 43.2 132/68(95) NSR 0 (11) 10(A) , No pain 11:23:16 85 12 99 47.8 134/79(99) NSR 0 (11) 10(A) , No pain Medications Time Medication Route Dose Verified Delivered Reason Notes Effe ctiveness by by 10:43:23 0.9% NaCl I.V. 100 Alejandro Barbara used for ml/hr Abdulaziz Lange RN procedure 10:43:32 Oxygen NC 2 Alejandro Barbara Per l/min Abdulaziz Lange RN physician 10:43:39 Lidocaine 2% added 20ml Alejandro Alejandro for local to vial Abdulaziz Cintron MD anesthetic field 10:43:46 Heparin Flush added 2 Alejandro Alejandro used for Bag to bags Abdulaziz Cintron MD procedure (1000units/500ml field NS) 11:02:21 Fentanyl I.V. 50 Alejandro Barbara for wilian Lange RN sedation 11:02:32 Versed I.V. 1 mg Alejandro Barbara for Abdulaziz Lange RN sedation 11:04:41 Versed I.V. 1 mg Alejandro Barbara for Abdulaziz Lange RN sedation 11:04:45 Fentanyl I.V. 50 Alejandro Barbara for wilian Lange RN sedation 11:06:48 Fentanyl I.V. 50 Alejandro Barbara for wilian Lange RN sedation 11:06:56 Versed I.V. 1 mg Alejandro Barbara for Abdulaziz Lange RN sedation 11:09:59 Versed I.V. 1 mg Alejandro Barbara for Abdulaziz Lange RN sedation 11:10:06 Fentanyl I.V. 50 Alejandro Barbara for wilian Lange RN sedation 11:15:23 Fentanyl I.V. 50 Alejandro Barbara for wilian Lange RN sedation Procedure Log Time Note 10:37:38 Too Leon RN sent for patient. Start room use. 10:37:39 Time tracking: Regular hours 10:37:42 Plan of Care:Hemodynamics will remain stable., Cardiac rhythm will remain stable., Comfort level will be maintained., Respiratory function will remain adequate., Patient/ family verbilizes understanding of procedure., Procedure tolerated without complication., Recovers from procedure without complications.. 10:43:23 0.9% NaCl 100 ml/hr I.V. was administered by Barbara Lange RN; used for procedure; 10:43:32 Oxygen 2 l/min NC was administered by Barbara Lange RN; Per physician; 10:43:39 Lidocaine 2% 20ml vial added to field was administered by Alejandro Cintron MD; for local anesthetic; 10:43:46 Heparin Flush Bag (1000units/500ml NS) 2 bags added to field was administered by Alejandro Cintron MD; used for procedure; 10:52:54 Patient received from ED to CCL 1 Alert and oriented. Tansferred to table in Supine position. 10:55:13 Warm blankets applied, and latanya hugger turned on for patient comfort. 10:55:14 Correct patient and procedure confirmed by team. 10:55:15 Signed procedure consent form obtained from patient. 10:55:16 ECG and BP/O2 sat monitors applied to patient. 10:55:17 Full Disclosure recording started 10:56:51 H&P Date Dictated: 03/31/2017 ER History on chart., New H&P dictated by physician.. 10:56:52 Pre-procedure instructions explained to patient. 10:56:53 Pre-op teaching completed and patient verbalized understanding. 10:56:58 Family in waiting room. 10:57:06 Patient NPO since Midnight. 10:57:29 Patient allergic to Other allergyAspirin, codeine 10:57:31 Is the patient allergic to Iodine/contrast media? No. 10:57:36 Is patient on blood thinner?Yes 10:57:39 ACC The patient was administered the following blood thiners within the last 24 hours: ACCPlavix 10:57:41 Patient diabetic? No. 10:57:43 Previous problem with sedation/anesthesia? No ? 10:57:44 Snore? Yes 10:57:46 Sleep apnea? No 10:57:48 Deviated septum? No 10:57:49 Opens mouth fully? Yes 10:57:50 Sticks out tongue? Yes 10:58:07 Dentures? No ? 10:58:18 Pre procedure: right dorsailis pedis pulse 2+ Normal; easily identifiable; not easily obliterated 10:58:33 Patient pain scale 0/10 ?. 10:59:14 IV patent on arrival in left hand with 0.9% NaCl at [facility]. 11:00:49 Lab Result : BUN 19 mg/dl 11:00:49 Lab Result : Creatinine 1 mg/dl 11:00:49 Lab Result : Hemoglobin 11.5 g/dl 11:00:49 Lab Result : Hematocrit 36.6 % 11:00:51 Lab results completed and on chart. 11:00:54 Right groin area was prepped with chlora-prep and draped in sterile fashion 11:00:55 Alarms reviewed by R. N. 11:00:56 Sharps counted by scrub and verified by R.N. 11:00:58 Use device set Femoral Dx 11:00:59 ACIST Syringe (63429) opened to sterile field. 11:01:00 Bag Decanter (2002S) opened to sterile field. 11:01:00 Medline Cath Pack ([id number]) opened to sterile field. 11:01:02 ACIST Hand Control (22510) opened to sterile field. 11:01:02 ACIST Manifold (32197) opened to sterile field. 11:01:04 Tegaderm 4 x 4 (1626W) opened to sterile field. 11:01:06 SHEATH 5FR [place] (KCT943) opened to sterile field. 11:01:06 DIAGNOSTIC WIRE .035 260cm J wire (771084) opened to sterile field. 11:01:11 PERCUTANEOUS ENTRY 19GA needle opened to sterile field. 11:01:12 DIAGNOSTIC Multipack 5Fr catheter set (KC6431) opened to sterile field. 11:01:21 Vital chart was started 11:01:24 Baseline sample Acquired. 11:01:27 Rhythm: sinus rhythm 11::33 --------ALL STOP TIME OUT------ 11:01:35 Final Timeout: patient, procedure, and site verified with staff and physician. All members of the team are in agreement. 11:01:37 Right groin site verified by team. 11:01:40 Physical assessment completed. ASA score P 2 - A patient with mild systemic disease as per Alejandro Cintron MD. 11::43 Sedation plan: IV Moderate Sedation Medication:Versed, Fentanyl 11:02:21 Fentanyl 50 mcg I.V. was administered by Barbara Lange RN; for sedation; 11:02:32 Versed 1 mg I.V. was administered by Barbara Lange RN; for sedation; 11:04:41 Versed 1 mg I.V. was administered by Barbara Lange RN; for sedation; 11:04:45 Fentanyl 50 mcg I.V. was administered by Barbara Lange RN; for sedation; 11:06:48 Fentanyl 50 mcg I.V. was administered by Barbara Lange RN; for sedation; 11:06:56 Versed 1 mg I.V. was administered by Barbara Lange RN; for sedation; 11:07:08 Procedure started. 11:07:14 Zero performed for pressure channel P1 11:07:44 Local anesthetic to right femoral artery with Lidocaine 2% by Alejandro Cintron MD.INITIAL ACCESS ONLY 11:09:59 Versed 1 mg I.V. was administered by Barbara Lange RN; for sedation; 11:10:06 Fentanyl 50 mcg I.V. was administered by Barbara Lange RN; for sedation; 11:11:09 A 5 Fr sheath was inserted into the Right Femoral artery 11:13:34 A MULTIPACK JL 4.0 5Fr catheter was advanced over the wire and used for Left Coronary Angiography. 11:15:07 Catheter removed. 11:15:23 Fentanyl 50 mcg I.V. was administered by Barbara Lange RN; for sedation; 11:16:15 A MULTIPACK 3DRC 5Fr catheter was advanced over the wire and used for Right Coronary Angiography. 11:16:42 Catheter removed. 11:17:07 A MULTIPACK Pigtail 5 Fr catheter was advanced over the wire and used for LV Angiography. 11:18:29 Injector settings: Ml/sec: 10, Volume: 20, 11:18:37 LV gram done using MACHADO 11:18:41 EF : 50 % 11:18:42 Catheter removed. 11:18:44 EXOSEAL 5Fr (EX500) opened to sterile field. 11:19:48 Sheath removed intact; hemostasis achieved with Exoseal to the Right Femoral artery. 11:19:50 Procedure ended.(Physican Out) 11:20:01 Fluoroscopy time 01.50 minutes. 11:20:04 Flurop Dose total: 508 11:20:04 Fluoroscopy dose: 508 mGy 11:22:00 Contrast amount:Isovue 300 52ml. 11:22:01 Sharps counted by scrub and verified by R.N. 11:22:03 Insertion/operative site no bleeding no hematoma. 11:22:06 Post-op/insertion site Right Femoral artery dressed using a 4 x 4 and Tegaderm. 11:22:09 Post right femoral artery:stable, clean and dry 11:22:11 Post Procedure Pulses reassessed and unchanged 11:22:14 Post-procedure physical assessment completed. ASA score P 2 - A patient with mild systemic disease as per Alejandro Cintron MD. 11:22:18 Post procedure rhythm: unchanged. 11:22:26 Estimated blood loss: 5 ml 11:22:27 Post procedure instruction explained to patient.Patient verbalizes understanding. 11:22:27 Patient needs reinforcement of post procedure teaching. 11:23:03 Procedure Complication : No complications 11:23:23 Procedure type changed to Cath procedure, Diagnostic procedure, LHC, LHC w/Coronaries, Miscellaneous Procedures, Moderate Sedation up to 15 minutes 11:23:25 See physician's report for complete and final results. 11:23:44 Procedure and supply charges have been captured, reviewed, submitted and are correct. 11:23:49 Vital chart was stopped 11:23:53 Report given to Pre/Post Procedure Room. 11:23:56 Patient transfered to Pre/Post Procedure Room with Stretcher. 11:24:04 Procedure ended. 11:24:04 Full Disclosure recording stopped 11:24:26 End room use (Document Last) Device Usage Item Name Manufacture Quantity Catalog Hospital Part Current Minimal Lot# / Number Charge Number Stock Stock Serial# Code ACIST Acist 1 [id number] [id number] 786578 046738 20 Syringe QMCODES (64599) Systems Inc Bag Decanter Microtek 1 204008 28375 684982 5 () Medical Inc. Medline Cath Cardinal 1 [id number] 648413 07532 076664 5 Pack Health ([id number]) ACIST Hand Acist 1 96084 493694 457542 706695 5 Control Medical (45683) Systems Inc ACIST Acist 1 19990 572216 060193 945050 5 Manifold Medical (20005) Systems Inc Tegaderm 4 x 3M 1 1626W 451649 750111 611460 5 4 (1626W) SHEATH 5FR Terumo 1 [id number] 107285 708197 454640 40 [place] (MCF403) DIAGNOSTIC St Angel 1 302248 017482 948057 964220 30 WIRE .035 260cm J wire (938709) PERCUTANEOUS Cook Medical 1 C41321 143137 774092 5 ENTRY 19GA needle DIAGNOSTIC Cardinal 1 [id number] 396060 20766 306235 30 Multipack Health 5Fr catheter set (PV6246) MULTIPACK JL Cardinal 1 920205 5 4.0 5Fr Health catheter MULTIPACK Cardinal 1 910673 5 3DRC 5Fr Health catheter MULTIPACK Cardinal 1 709549 5 Pigtail 5 Fr Health catheter EXOSEAL 5Fr Cardinal 1 EX500 433425 787403 425709 10 (EX500) Health Signature Audit [place] Stage Time Signature Unsigned Intra-Procedure 03/31/2017 Meka 11:24:39 AM Counts RT(R) Signatures Monitor : Meka Signature : Counts RT Date : Time : [address] [address]
[~2017-03-31 03:14] MED LIST changes: +VIBRAMYCIN 100100 MG PO
[2017-03-31 03:59] LABS: BASOPHILS 0.2 % (0-2); EOSINOPHILS 0.2 % (0-7); HEMATOCRIT 36.6 % (36.0-48.0); HEMOGLOBIN 11.5 g/dL (12-16); IMMATURE GRANULOCYTES 0.2 % (0-5); LYMPHOCYTES 42.4 % (15-50); MCH 24.1 pg (26.0-34.0); MCHC 31.4 g/dL (31.0-37.0); MCV 76.7 fL (80.0-100.0); MEAN PLATELET VOLUME 9.8 fL (7.4-10.4); MONOCYTES 7.4 % (2-11); NEUTROPHILS 49.6 % (40-80); PLATELET COUNT 276 10x3/uL (130-400); RBC 4.77 10x6/uL (4.00-5.40); RDW 15.8 % (11.5-14.5); WBC 5.4 10x3/uL (4.8-10.8)
[2017-03-31 04:24] LABS: ALBUMIN 3.7 g/dL (3.4-5.0); ALKALINE PHOSPHATASE 86 U/L (46-116); ALT (SGPT) 22 U/L (10-68); BILIRUBIN - TOTAL 0.46 mg/dL (0.2-1.3); CALC OSMOLALITY 287 mosm/kg (275-300); CARBON DIOXIDE 29.1 mmol/L (21.0-32.0); CHLORIDE - SERUM 104 mmol/L (98-107); GLUCOSE 112 mg/dL (74-106); POTASSIUM - SERUM 3.8 mmol/L (3.5-5.1); SODIUM 143 mmol/L (136-145); UREA NITROGEN 19 mg/dL (7-18); eGFR NON AFRICAN AMERICAN 61 mL/min (90-120)
[2017-03-31 04:35] LABS: CHOL - HDL RATIO 3.2 ratio (2.3-4.1); CHOLESTEROL, TOTAL 196 mg/dL (0-200); CKMB 1.5 U/L (0.0-3.6); CREATINE KINASE 127 UL (21-215); HDL CHOLESTEROL 61 mg/dL (32-96); LDL CHOLESTEROL 119 mg/dL (0-100); TRIGLYCERIDE 82 mg/dL (30-200)
[2017-03-31 04:36] LABS: TROPONIN-I < 0.017 ng/mL (0.000-0.060)
[2017-03-31 08:51] VITALS: Ht 165.1 cm; Wt 118.8 kg
[2017-03-31 11:18] LABS: CKMB 1.1 U/L (0.0-3.6); CREATINE KINASE 107 UL (21-215)
[2017-03-31 11:20] LABS: TROPONIN-I < 0.017 ng/mL (0.000-0.060)
== END 2017-03-31 13:56 | disposition home or self-care (01) ==
LOC: D.ER 03:14 → D.SDCHOLD 07:20 → OBSVTIME 07:21 → D.SDCHOLD 13:56
PROVIDERS: Family Medicine
DX: I25.10 Atherosclerotic heart disease of native coronary artery without angina pectoris (principal); I25.82 Chronic total occlusion of coronary artery; Z95.5 Presence of coronary angioplasty implant and graft; I10 Essential (primary) hypertension; I48.91 Unspecified atrial fibrillation

== ENCOUNTER 2017-09-14 06:30 | Day surgery (SDC) | payer OTHER ==
[2017-09-13 14:00] LABS: BASOPHILS 0.4 % (0-2); EOSINOPHILS 0.4 % (0-7); HEMOGLOBIN 11.4 g/dL (12-16); HEMOGLOBIN 11.6 g/dL (12-16); IMMATURE GRANULOCYTES 0.1 % (0-5); LYMPHOCYTES 37.4 % (15-50); MCH 22.5 pg (26.0-34.0); MCH 22.9 pg (26.0-34.0); MCHC 30.8 g/dL (31.0-37.0); MCHC 31.4 g/dL (31.0-37.0); MCV 73.1 fL (80.0-100.0); MEAN PLATELET VOLUME 10.2 fL (7.4-10.4); MEAN PLATELET VOLUME 10.4 fL (7.4-10.4); NEUTROPHILS 54.7 % (40-80); PLATELET COUNT 288 10x3/uL (130-400); RBC 5.06 10x6/uL (4.00-5.40); RBC 5.07 10x6/uL (4.00-5.40); RDW 17.1 % (11.5-14.5); WBC 7.5 10x3/uL (4.8-10.8); WBC 7.7 10x3/uL (4.8-10.8)
[2017-09-13 14:01] LABS: HCG URINE NEGATIVE (NEGATIVE)
[2017-09-13 14:20] LABS: ALBUMIN 3.7 g/dL (3.4-5.0); ALKALINE PHOSPHATASE 87 U/L (46-116); ALT (SGPT) 27 U/L (10-68); BILIRUBIN - TOTAL 0.73 mg/dL (0.2-1.3); CALC OSMOLALITY 283 mosm/kg (275-300); CALCIUM 8.9 mg/dL (8.5-10.1); CARBON DIOXIDE 29.5 mmol/L (21.0-32.0); CHLORIDE - SERUM 103 mmol/L (98-107); CREATININE - SERUM 0.7 mg/dL (0.6-1.3); GLUCOSE 96 mg/dL (74-106); POTASSIUM - SERUM 3.1 mmol/L (3.5-5.1); PROTEIN - SERUM 7.7 g/dL (6.4-8.2); SODIUM 143 mmol/L (136-145); UREA NITROGEN 9 mg/dL (7-18); eGFR NON AFRICAN AMERICAN > 90 mL/min (90-120)
[~2017-09-14] VITALS: Ht 165.1 cm; Wt 122.5 kg
--- NOTE | ~2017-09-14 | OP ---
PATIENT NAME: TOLU ROJAS MEDICAL RECORD: [id number] :62 LOCATION:D[facility] ADMISSION DATE: SURGEON: HELIO SHAW MD DATE OF OPERATION: 09/14/2017 PREOPERATIVE DIAGNOSIS: Vulvar mass. POSTOPERATIVE DIAGNOSIS: Vulvar mass. PROCEDURE: Excision of vulvar mass. SURGEON: Helio Shaw MD TOOL TROUBLE SHOOTER: Mr. Wilhelm. ANESTHESIOLOGIST: Dank Middleton MD ANESTHETIC: General. FINDINGS: A 5 x 3 x 3 cm brink-colored fluctuant mass removed from the left vulva. Otherwise, vulvar anatomy is unremarkable. SPECIMEN REMOVED: Vulvar mass. SPECIMEN DISPOSITION: Pathology. ESTIMATED BLOOD LOSS: Less than or equal to 75 cc. FLUIDS: 600 cc of the lactated Ringer's. URINE OUTPUT: Quantity sufficient void prior to the procedure. COMPLICATIONS: None. INDICATIONS: The patient is a 56-year-old female referred to the [facility] for vulvar mass arising over the previous month. The patient states that there is mild tenderness with it. The patient does not report any abnormal vaginal discharge. The patient is consented for removal of vulvar mass. DESCRIPTION OF PROCEDURE: After informed consent was assured, the patient was taken to the operating room where anesthetic was obtained and she was placed in stirrups. The patient is positioned. The extent of the mass identified. The skin surface is now incised with a 15 blade. This incision parallels the left margin of the labia majora. Using hemostats, the tissue connected to the capsule of the mass is bluntly dissected. The mass was grabbed with a towel clamp and placed on gentle traction. Using Metzenbaum scissors, further attachments of the mass to the connective tissues removed. The 2-0 Vicryl was used to reapproximate the deeper tissues and Monocryl stitch was used to reapproximate the skin surface. Triple antibiotic ointment was placed over the incision and sterile dressing applied. The patient tolerated this procedure well and was awakened and went to the recovery area in stable condition. TRANSINT:[id number] Voice Confirmation ID: [id number] DOCUMENT ID: [id number] OPERATIVE REPORT [id number] REV BOBHELIO LEWIS MD at 1952 CC: [id number] DICTATION DATE: 09/20/17 1800 CRUDE UNIT OPERATOR: 09/20/171920 [facility] SDC 09/14/17 [facility] [address] [place] [address]
[~2017-09-14 06:30] MED LIST changes: +BYSTOLIC5 MG PO; +HCTZ25 MG PO; +K-TAB10 MEQ PO; +ZANTAC150 MG PO
[2017-09-14 07:34] VITALS: Ht 165.1 cm; Wt 122.5 kg
[2017-09-14 07:44] LABS: HCG URINE NEGATIVE (NEGATIVE)
== END 2017-09-14 12:44 | disposition home or self-care (01) ==
LOC: D.OPS 06:30 → D.PAN 08:00 → D.OPS 09:00
PROVIDERS: Anesthesiology; Obstetrics & Gynecology
DX: D28.1 Benign neoplasm of vagina (principal); Z01.812 Encounter for preprocedural laboratory examination